=== PATIENT | male | born 1990 | race Caucasian/White ===

== ENCOUNTER 2019-04-15 05:35 | Inpatient (IN) | payer MEDICAID ==
[~2019-04-15] VITALS: Ht 153.7 cm; Wt 83.5 kg
[~2019-04-15 05:35] MED LIST: HYDR-4011 PO; IBUP-1542 PO
[2019-04-15] MEDS ORDERED: KETOROLAC 30 MG INJ IV STA (06:48)
[2019-04-15] MEDS ORDERED: morphine 4 MG/ML VIAL IV STA ×2 (06:57→11:33)
[2019-04-15] MEDS ORDERED: ONDANSETRON 4 MG INJ IV STA (06:57)
[2019-04-15] MEDS ORDERED: ACETAMINOPHEN 325 MG TAB PO PRN ×2 (08:00→14:30)
[2019-04-15] MEDS ORDERED: ONDANSETRON 4 MG INJ IV PRN (08:00)
[2019-04-15] MEDS ORDERED: KETOROLAC 15 MG INJ IV PRN (14:30)
[2019-04-15] MEDS ORDERED: ONDANSETRON 4 MG TAB PO PRN (14:30)
[2019-04-15] MEDS ORDERED: morphine 2 MG INJ IV PRN (14:30)
[2019-04-15] MEDS ORDERED: NACL 0.9% 3 ML SYG IV SCH (14:30)
[2019-04-15] MEDS: CEFTRIAXONE 1 GM/50 ML (PMX) 50 ML IVPB SCH (15:57)
[2019-04-15 20:30] VITALS: Ht 153.7 cm; Wt 83.5 kg
[2019-04-15 20:56] VITALS: BP 131/78; PULSE 106; RESP 18
[2019-04-16] VITALS (25 sets, daily range): BP systolic 111–139; BP diastolic 60–85; PULSE 80–107; RESP 14–20
[2019-04-16] MEDS: DEXTROSE 5%-0.45% NACL 1,000 ML IV SCH ×3 (00:02→23:12)
[2019-04-16] MEDS: CEFTRIAXONE 1 GM/50 ML (PMX) 50 ML IVPB SCH (14:52)
[2019-04-16] MEDS ORDERED: IOHEXOL 300MG/ML 30 ML BTL ONE (19:25)
[2019-04-16] MEDS ORDERED: FENTAnyl 50 MCG/ML VIAL ONE (20:22)
[2019-04-16] MEDS ORDERED: MIDAZOLAM 1 MG/ML 2 ML INJ ONE (20:23)
[2019-04-16] MEDS ORDERED: PROPOFOL 20 ML ONE (20:55)
[2019-04-16] MEDS ORDERED: LIDOCAINE 2% (SDV) 5 ML INJ ONE (20:55)
[2019-04-16] MEDS ORDERED: CEFAZOLIN 1 GM INJ ONE (20:55)
[2019-04-16] MEDS ORDERED: ONDANSETRON 4 MG INJ ONE (20:56)
[2019-04-16] MEDS ORDERED: HYDROmorphONE 1 MG/5 ML IV SYRINGE IV PRN ×2 (21:30)
[2019-04-16] MEDS ORDERED: MEPERIDINE 25 MG INJ IV PRN (21:30)
[2019-04-16] MEDS ORDERED: ONDANSETRON 4 MG INJ IV PRN (21:30)
[2019-04-16] MEDS ORDERED: DIPHENHYDRAMINE 50 MG INJ IV PRN (21:30)
[2019-04-16] MEDS ORDERED: METOCLOPRAMIDE 10 MG INJ IV PRN (21:30)
[2019-04-16] MEDS ORDERED: FENTAnyl 50 MCG/ML VIAL IV PRN (21:30)
[2019-04-17 02:37] VITALS: BP 105/57; PULSE 80; RESP 20
[2019-04-17] MEDS: DEXTROSE 5%-0.45% NACL 1,000 ML IV SCH (06:00)
[2019-04-17 08:13] VITALS: BP 118/65; PULSE 73; RESP 16
[2019-04-17] MEDS: CEFAZOLIN 1 GM/50 ML (PMX) 50 ML IVPB SCH ×2 (13:35→21:33)
[2019-04-17 14:19] VITALS: BP 99/54; PULSE 56; RESP 16
[2019-04-17 16:00] VITALS: BP 102/68; PULSE 60
[2019-04-17 21:02] VITALS: BP 129/69; PULSE 85; RESP 20
[2019-04-18 02:25] VITALS: BP 117/66; PULSE 87; RESP 18
[2019-04-18] MEDS: CEFAZOLIN 1 GM/50 ML (PMX) 50 ML IVPB SCH (06:03)
[2019-04-18 08:00] VITALS: BP 121/68; PULSE 83; RESP 16
== END 2019-04-18 13:45 | disposition home or self-care (01) | DRG 661 ==
LOC: E/R 05:35 → 5EC 07:59 → EDBEDREQ 14:49 → OBSVTOIN 04-16 11:43
PROVIDERS: ADMIT Internal Medicine; ATTEND Internal Medicine
PROC: 0T778DZ Dilation of Left Ureter with Intraluminal Device, Via Natural or Artificial Opening Endoscopic (ICD-10-PCS; principal; 2019-04-16 19:30)
DX: N20.2 Calculus of kidney with calculus of ureter (principal)
CPT/HCPCS: 36415; 71045; 74018; 74430; 80048; 80053; 80061; 80307; 81001; 83036; 83735; 84100; 85025; 85610; 85730; 87081; 87086; 96374; 96375; G0378; C2617; J0690; J0696; J1885; J2250; J2270; J2405; J3010; J7042; Q9967